=== PATIENT | female | born 1960 | race Caucasian/White ===

== ENCOUNTER 2023-10-25 17:28 | Emergency (ER) | payer MEDICARE, BC ==
[~2023-10-25] VITALS: Ht 162.6 cm; Wt 77.3 kg
[2023-10-25] MEDS ORDERED: LISINOPRIL40 MG PO (17:40)
[2023-10-25] MEDS ORDERED: GLUCOPHAGE PO (17:40)
[2023-10-25] MEDS ORDERED: EFFEXOR XR150 M1 PO (17:40)
[2023-10-25] MEDS ORDERED: GLIMEPIRIDE4 MG PO (17:41)
[2023-10-25] MEDS ORDERED: LEVOXYL0.075 MG PO (17:41)
[2023-10-25] MEDS ORDERED: ADULT ASPIRIN R81 MG PO (17:41)
[2023-10-25] MEDS ORDERED: TRAMADOL 50 MG TAB PO (17:41)
[2023-10-25] MEDS ORDERED: ROSUVASTATIN CA40 MG PO (17:42)
[2023-10-25] MEDS ORDERED: FENOFIBRATE40 MG PO (17:42)
[2023-10-25] MEDS ORDERED: BUSPAR 15MG TAB15 MG PO (17:43)
[2023-10-25 19:07] VITALS: BP 140/75
== END 2023-10-25 19:07 | disposition home or self-care (01) ==
LOC: ED 17:28
DX: S62.396A Other fracture of fifth metacarpal bone, right hand, initial encounter for closed fracture (principal); W01.0XXA Fall on same level from slipping, tripping and stumbling without subsequent striking against object, initial encounter

== ENCOUNTER 2023-12-11 09:51 | Outpatient (RCR) | payer MEDICARE, BC ==
[~2023-12-11 09:51] MED LIST: ADULT ASPIRIN R81 MG PO; BUSPAR 15MG TAB15 MG PO; EFFEXOR XR150 M1 PO; FENOFIBRATE40 MG PO; GLIMEPIRIDE4 MG PO; GLUCOPHAGE PO; LEVOXYL0.075 MG PO; LISINOPRIL40 MG PO; ROSUVASTATIN CA40 MG PO; TRAMADOL 50 MG TAB PO
== END 2023-12-27 | disposition home or self-care (01) ==
LOC: OT
DX: M79.641 Pain in right hand (principal)